=== PATIENT | male | born 1990 | race Caucasian/White ===

== ENCOUNTER 2017-06-29 22:23 | Emergency (ER) | payer OTHER ==
[2017-06-30 00:30] VITALS: BP 151/107
== END 2017-06-30 00:30 | disposition home or self-care (01) ==
LOC: ED 22:23
DX: M75.92 Shoulder lesion, unspecified, left shoulder (principal); Z91.041 Radiographic dye allergy status; Z87.442 Personal history of urinary calculi
CPT/HCPCS: J1100; J1885; J3301; J3490

== ENCOUNTER 2017-09-12 19:24 | Emergency (ER) | payer OTHER ==
[~2017-09-12] VITALS: Ht 188 cm; Wt 98.6 kg
[2017-09-12 19:30] VITALS: Ht 188 cm; Wt 98.6 kg
[2017-09-12 21:37] VITALS: BP 140/104
== END 2017-09-12 21:37 | disposition home or self-care (01) ==
LOC: ED 19:24
DX: M54.5 Low back pain (principal); I10 Essential (primary) hypertension; Z87.442 Personal history of urinary calculi; Z88.8 Allergy status to other drugs, medicaments and biological substances
CPT/HCPCS: J1885

== ENCOUNTER 2018-04-02 21:31 | Emergency (ER) | payer OTHER | END 2018-04-03 00:24 | disposition left against medical advice (07) | LOC: ED 21:31 | DX: Z53.21 Procedure and treatment not carried out due to patient leaving prior to being seen by health care provider (principal) ==